=== PATIENT | male | born 1935 | race Caucasian/White ===

== ENCOUNTER 2017-07-17 15:32 | Emergency (ER) | payer OTHER, MEDICARE ==
[~2017-07-17] VITALS: Ht 177.8 cm; Wt 68.4 kg
[~2017-07-17 15:32] MED LIST: CIPRO500 MG PO; COUMADIN5 MG PO; EMETROL ORAL S236 ML PO; LOPRESSOR25 MG PO; LOPRESSOR50 MG PO; MELATONIN1 MG PO; PRAVACHOL40 MG PO; VICODIN,LORT1 TABLET PO
[2017-07-17 18:05] LABS: HEMATOCRIT 32.2 % (38.0-50.0); MCH 32.4 PG (29.0-34.0); MCHC 34.2 G/DL (30.0-36.0); MCV 94.7 FL (86-99); MEAN PLAT.VOLUME 9.5 uM^3 (9.0-12.4); PLATELET COUNT 184 K/uL (156-360); RBC DIS.WIDTH-CV 13.7 % (11.8-14.6); RBC DIS.WIDTH-SD 47.8 % (39-53); WHITE BLOOD COUNT 5.6 K/uL (4.1-10.2)
[2017-07-17 18:15] LABS: CHLORIDE 99 mEq/L (99-109); POTASSIUM 5.3 mEq/L (3.7-5.4); SODIUM 132 mEq/L (136-147)
[2017-07-17 18:18] LABS: GLUCOSE 104 mg/dL (70-99)
[2017-07-17 18:19] LABS: ANION GAP 9 MEQ/L (2-14); TOTAL BILIRUBIN 0.5 mg/dL (0.0-1.0)
[2017-07-17 18:21] LABS: ALKALINE PHOSPHATASE 1383 IU/L (3-129); GFR ESTIMATE (CALCULATED) > 59 mL/min/
[2017-07-17 18:22] LABS: UREA NITROGEN (BUN) 14 mg/dL (9-23)
[2017-07-17 18:25] LABS: LIPASE 14 U/L (1.0-51.0)
[2017-07-17] MEDS ORDERED: ROXICODONE5 MG PO (18:51)
[2017-07-17 19:39] VITALS: BP 132/85
== END 2017-07-17 19:44 | disposition home or self-care (01) ==
LOC: EME 15:32
DX: E86.0 Dehydration (principal); R19.7 Diarrhea, unspecified; R10.9 Unspecified abdominal pain; Z85.46 Personal history of malignant neoplasm of prostate; C79.51 Secondary malignant neoplasm of bone; G47.30 Sleep apnea, unspecified; Z79.01 Long term (current) use of anticoagulants
CPT/HCPCS: 74176; 80053; 81003; 83605; 83690; 85027; 87040; 99281; 99285; J7030

== ENCOUNTER 2018-04-20 10:54 | Emergency (ER) | payer OTHER, MEDICARE ==
[~2018-04-20] VITALS: Ht 177.8 cm; Wt 62.7 kg
[~2018-04-20 10:54] MED LIST changes: +ROXICODONE5 MG PO
[2018-04-20 12:21] VITALS: BP 106/78
== END 2018-04-20 12:29 | disposition home or self-care (01) ==
LOC: EME 10:54
DX: S83.206A Unspecified tear of unspecified meniscus, current injury, right knee, initial encounter (principal); M23.91 Unspecified internal derangement of right knee; X58.XXXA Exposure to other specified factors, initial encounter; G47.30 Sleep apnea, unspecified; Z79.01 Long term (current) use of anticoagulants; Z85.46 Personal history of malignant neoplasm of prostate; Z85.830 Personal history of malignant neoplasm of bone; Z88.6 Allergy status to analgesic agent; Z88.5 Allergy status to narcotic agent
CPT/HCPCS: 99281; 99284

== ENCOUNTER → 2018-05-24 | Outpatient (CLI) | payer OTHER, MEDICARE ==
[~2018-05-24] VITALS: Ht 177.8 cm; Wt 62.0 kg
[~2018-05-24] MED LIST changes: +CALCIUM 600 +1 EAC1 PO; +CENTRUM ADULTS1 EACH PO; +CO Q-10400 MG PO; +COMPAZINE10 MG PO; +CYANOCOBALAM1000 MCG PO; +FLOMAX0.4 MG PO; +KAOPECTATE240 MG PO; +LUPRON DEPOT45 MG IM; +MAGNESIUM250 MG PO; +ULTRAM50 MG PO; +XGEVA120 MG/1.7 SC
[2018-05-24 07:15] VITALS: BP 104/60
== END | disposition home or self-care (01) ==
LOC: IVINF 07:00
DX: E86.0 Dehydration (principal); C61 Malignant neoplasm of prostate; C79.51 Secondary malignant neoplasm of bone
CPT/HCPCS: 96360; J7030

== ENCOUNTER 2018-07-17 12:19 | Emergency (ER) | payer OTHER, MEDICARE ==
[~2018-07-17] VITALS: Ht 177.8 cm; Wt 56.3 kg
[2018-07-17 14:22] LABS: HEMATOCRIT 24.1 % (38.0-50.0); HEMOGLOBIN 8.1 G/DL (12.5-16.6); MCH 33.5 PG (29.0-34.0); MCHC 33.6 G/DL (30.0-36.0); MCV 99.6 FL (86-99); PLATELET COUNT 65 K/uL (156-360); RBC DIS.WIDTH-CV 16.6 % (11.8-14.6); RBC DIS.WIDTH-SD 61.1 % (39-53); RED BLOOD COUNT 2.42 M/uL (4.00-5.50); WHITE BLOOD COUNT 5.1 K/uL (4.1-10.2)
[2018-07-17 14:39] LABS: ALBUMIN 3.3 g/dL (3.2-4.8)
[2018-07-17 14:40] LABS: CHLORIDE 95 mEq/L (99-109); SODIUM 129 mEq/L (136-147)
[2018-07-17 14:42] LABS: GLUCOSE 109 mg/dL (70-99); TOTAL PROTEIN 5.5 g/dL (6.4-8.3)
[2018-07-17 14:44] LABS: TOTAL BILIRUBIN 0.8 mg/dL (0.0-1.0)
[2018-07-17 14:45] LABS: ALKALINE PHOSPHATASE 699 IU/L (3-129)
[2018-07-17 14:46] LABS: CREATININE 0.6 mg/dL (0.6-1.3); GFR ESTIMATE (CALCULATED) > 59 mL/min/ (58.99-99999)
[2018-07-17 14:47] LABS: AST (GOT) 25 IU/L (2-34); UREA NITROGEN (BUN) 15 mg/dL (9-23)
[2018-07-17 14:48] LABS: ALT (GPT) 25 IU/L (3-49)
[2018-07-17 18:09] LABS: PTT 40.4 SEC (25-37)
[2018-07-17 19:54] VITALS: BP 121/75
== END 2018-07-17 19:55 | disposition hospice, home (50) ==
LOC: EME 12:19
PROVIDERS: Nurse Practitioner Family
DX: G89.29 Other chronic pain (principal); Z85.46 Personal history of malignant neoplasm of prostate; C79.51 Secondary malignant neoplasm of bone; I48.91 Unspecified atrial fibrillation; Z79.01 Long term (current) use of anticoagulants; Z51.5 Encounter for palliative care; N40.0 Benign prostatic hyperplasia without lower urinary tract symptoms; Z88.5 Allergy status to narcotic agent; Z88.6 Allergy status to analgesic agent
CPT/HCPCS: 80053; 85027; 85610; 85730; 99281; 99285; J1170; J2405; J7030; J7050